=== PATIENT | female | born 1965 | race Caucasian/White ===

== ENCOUNTER 2018-12-04 07:27 | Day surgery (SDC) | payer MEDICARE ==
[2018-12-03 11:46] VITALS: BMI 26.5
--- NOTE | 2018-12-04 11:48 | CT ---
MYELOGRAM OF CERVICAL, THORACIC, AND LUMBAR SPINE: History: 53-year-old female with history of radiculopathy. Dosimetry: 2.1 minutes of fluoroscopy, DAP of 1.01 mGy*cm^2. Technique: Informed consent was obtained from the patient. The right L2-3 interlaminar space was localized using fluoroscopy. The overlying skin was prepped and draped in the usual sterile manner. A 1% Lidocaine s olution was used to anesthetize the overlying soft tissues. A 22 gauge spinal needle was placed into the subarachnoid space. A total of 10 ml of Isovue M300 was injected into the subarachnoid space. Spo t and overhead images obtained followed by post myelographic CT of the cervical, thoracic, and lumbar spine. FINDINGS: Cervical Spine: The central cervical canal is patent. C1-2, C2-3: Unremarkable. C3-4: Minimal broad based disc bulge seen. The central canal and neural foramen are patent. C4-5, C5-6, C6-7, C7-T1: Unremarkable. Thoracic Spine: There is extensive upper thoracic and midthoracic surgical hardware with pedicles screws and posterio r hardware fusing the T2, T3, T4, T5, T6, T7 and T8 levels. The patient has had previous old fracture s at the T4, T6, and upper aspect of T7 levels. The spinal cord is not compressed. No significant jackie dence of neural foraminal narrowing is seen. There does appear to be some inferior endplate T8 sclero tic changes. There is a minimal T8-9 right paracentral disc protrusion abutting but not significantly compressing the thecal sac. The rest of the thoracic spine is unremarkable. No definite evidence of loosening seen in the surgical hardware or screws. There is slight right T7 lateral displacement of the pedicle screws and medial displacement of the le ft T7 pedicle screw. These screws do not definitely pass through the appropriate pedicles and are lizabeth ewhat displaced extending laterally on the right and medially into the spinal canal on the left. Lumbar Spine: Five non-rib bearing lumbar vertebrae are seen. No evidence of acute lumbar spine fracture is seen. S ome mild bilateral SI joint degenerative change is seen. No evidence of disc herniations, spinal stenosis or neural foraminal narrowing is seen. IMPRESSION: 1. Right T8-9 paracentral small disc protrusion. 2. T7 pedicle screws are displaced toward the right compared to the normal expected course. Significa nce of this unknown. 3. Incidentally noted mid renal area of a hypodensity seen. This may represent a parapelvic cyst or p ossible mass. Correlate with sonographic evaluation of the kidneys to further characterize. POS: [facility]
== END 2018-12-04 10:00 | disposition home or self-care (01) ==
LOC: RAD 07:27
PROVIDERS: ATTEND Neurological Surgery
PROC: B01B1ZZ Fluoroscopy of Spinal Cord using Low Osmolar Contrast (ICD-10-PCS; principal; 2018-12-04)
DX: M50.01 Cervical disc disorder with myelopathy, high cervical region (principal); M51.24 Other intervertebral disc displacement, thoracic region; I48.91 Unspecified atrial fibrillation; G43.909 Migraine, unspecified, not intractable, without status migrainosus; Z79.899 Other long term (current) drug therapy; Z88.5 Allergy status to narcotic agent; Z88.8 Allergy status to other drugs, medicaments and biological substances; Z98.890 Other specified postprocedural states
CPT/HCPCS: 62305; 72126; 72129; 72132